=== PATIENT | female | born 1970 | race Caucasian/White ===

== ENCOUNTER → 2016-05-27 | Outpatient (CLI) | payer OTHER ==
[~2016-05-27] MED LIST: AZATHIOPRINE50 MG PO; LIORESAL TAB 1010 MG PO; MILLIPRED5 MG PO; NORCO 5-325 TA1 EACH PO; REQUIP1 MG PO; ZESTRIL20 MG PO; ZOFRAN4 MG PO; ZYRTEC10 M3 PO
[2016-05-27 09:51] LABS: BUN/CREATININE RATIO 21 (0-10)
== END ==
LOC: LAB 08:37
PROVIDERS: Internal Medicine Gastroenterology
DX: K75.4 Autoimmune hepatitis (principal)
CPT/HCPCS: 36415; 80053

== ENCOUNTER → 2016-11-30 | Outpatient (CLI) | payer OTHER ==
[2016-11-30 14:56] LABS: BUN/CREATININE RATIO 22 (0-10)
== END ==
LOC: LAB 14:13
PROVIDERS: Internal Medicine Gastroenterology
DX: K75.4 Autoimmune hepatitis (principal)
CPT/HCPCS: 36415; 80053